=== PATIENT | female | born 1990 | race Caucasian/White ===

== ENCOUNTER 2017-03-25 00:33 | Emergency (ER) | payer SELFPAY ==
[~2017-03-25] VITALS: Ht 157.5 cm; Wt 71.0 kg
[~2017-03-25 00:33] MED LIST: POLY17S PO
[2017-03-25 00:35] VITALS: BP 131/92; PULSE 58; RESP 16; TEMP 98; O2SAT 98
[2017-03-25] MEDS ORDERED: POLY10O EACH EYE (01:21)
--- NOTE | 2017-03-25 01:24 | PD ---
HPI Chief Complaint: Eye Problems/Injury Time Seen by Provider: 01:17 Travel History International Travel<30 days: No Contact w/Intl Traveler<30days: No Traveled to known affect area: No History of Present Illness HPI 27-year-old female here with right eye redness, irritation, yellow drainage, matting of the eyelids. Symptoms started just a few hours ago. She has had some upper respiratory symptoms for the past few weeks. Denies any left eye discomfort. Denies fevers or chills. She does not wear contacts or glasses. No other complaints. PFSH Past Medical History Medical History: Denies Significant Hx Immunizations Current: No Tetanus Vaccination: < 5 Years Influenza Vaccination: No ?: Not LMP: 03/22 : 2 Para: 2 Past Surgical History Surgical History: No Previous Surgery Social History Alcohol Use: No Tobacco Use: No Substance Use: No Allergies-Medications (Allergen,Severity, Reaction): Coded Allergies: No Known Allergies (Verified , 03/25/17) Reported Meds & Prescriptions Reported Meds & Active Scripts Active Polytrim Opth Drops (Polymyxin/Trimethoprim Sulfate) 10,000-0.1 Unit/Ml-% Soln 1 Drop EACH EYE Q6HR 7 Days Review of Systems Except as stated in HPI: all other systems reviewed are Neg Physical Exam Narrative GENERAL: Well-nourished female in no acute distress SKIN: Warm and dry. HEAD: Atraumatic. Normocephalic. EYES: Pupils equal and round reactive to light extraocular muscles are intact. Right eye conjunctival injection is present. There is no periorbital edema or erythema, no proptosis. ENT: No nasal bleeding or discharge. Mucous membranes pink and moist. NECK: Trachea midline. No JVD. CARDIOVASCULAR: Regular rate and rhythm. No murmur appreciated. RESPIRATORY: No accessory muscle use. Clear to auscultation. Breath sounds equal bilaterally. Data Data Last Documented VS Vital Signs Date Time Temp Pulse Resp B/P (MAP) Pulse Ox O2 Delivery O2 Flow Rate FiO2 03/25/17 00:35 98.0 58 16 131/92 (105) 98 Room Air MDM Medical Decision Making Medical Screen Exam Complete: Yes Emergency Medical Condition: Yes Medical Record Reviewed: Yes Differential Diagnosis Conjunctivitis-bacterial versus viral versus chemical, iritis, periorbital cellulitis, orbital cellulitis, corneal abrasion Narrative Course 27-year-old female presents with a few hours of right eye redness, irritation and matting, yellow drainage. Examination is consistent with conjunctivitis, likely infectious. She is being discharged with Polytrim ophthalmic solution. Diagnosis Primary Impression: Conjunctivitis, right eye Qualified Codes: H10.31 - Unspecified acute conjunctivitis, right eye Departure Forms: Tests/Procedures, Work Release Enter return to work date: Mar 26, 2017 Additional Instructions: Medication as prescribed. Wash hands frequently. Wash pillow and pillowcase. Return for any emergent medical conditions. Med/Other Pt SpecificInfo: Prescription(s) given Scripts Polymyxin B-Trimethoprim Opth Drops (Polytrim Opth Drops) 10,000-0.1 Unit/Ml-% Soln 1 DROP EACH EYE Q6HR for Mgmt Bacterial Infection for 7 Days, #1 BOTTLE 0 Refills Prov: Taya Hernández DO 03/25/17 Disposition: 01 DISCHARGE HOME Condition: Stable Nik Renner Mar 25, 2017 01:24
== END 2017-03-25 02:07 | disposition home or self-care (01) ==
LOC: NEPD 00:33
DX: H10.9 Unspecified conjunctivitis (principal)
CPT/HCPCS: 99283